=== PATIENT | male | born 1940 | race Caucasian/White ===

== ENCOUNTER → 2023-07-30 09:41 | Outpatient (REF) | payer MEDICARE, OTHER, SELFPAY ==
--- NOTE | 2023-07-30 09:47 | CA_ITS ---
Transthoracic Echocardiogram Patient (Last, First, Middle): Lyndon Varma R Gender: Male Date of : 1940 Age: 83 Procedure Date: 07/30/2023 Procedure Type: Transthoracic Echocardiogram Location: OP Height: 185.42 cm Weight: 79.38 kg BSA: 2.03 m2 Heart Rate: 67 bpm BP: 132 / 78 mmHg Fiber Picker: SB Referring MD: Dinorah MEDINA Symptoms: R06.09 RIZZO Study Quality: Adequate ECG Rhythm: Sinus with PACs Conclusions: - The left ventricular systolic function is normal. The calculated ejection fraction is 57% by biplane method. - The basal inferior segment is hypokinetic. - No obvious valvular pathology seen on this study. - Suspect liver cysts but not well seen. Consider dedicated ultrasound if clinically indicated. Findings Left Ventricle Normal left ventricular cavity size. The left ventricular systolic function is normal. The calculated ejection fraction is 57% by biplane method. Evidence suggests grade I (mild) diastolic dysfunction. There is mild septal asymmetric hypertrophy. Wall Motion Rest Echo Findings The basal inferior segment is hypokinetic. Right Ventricle Normal right ventricular cavity size and systolic function. Atria The left atrium is mildly dilated. The right atrium is normal in size. Aortic Valve There is a normal trileaflet aortic valve. There is no aortic valve stenosis. There is trace (trivial) aortic valve regurgitation. Mitral Valve The mitral valve appears normal. There is no mitral valve regurgitation. There is no mitral valve stenosis. Pulmonic Valve The pulmonic valve is likely normal. Tricuspid Valve Normal tricuspid valve structure. There is trace tricuspid valve regurgitation. There is no evidence of pulmonary hypertension. Great Vessels The asc aorta is normal in size. Venous The inferior vena cava is normal in size and collapses greater than 50% with inspiration. Pericardium/Pleural There is no evidence of pericardial effusion. Prior Study Comparison No prior study available for comparison. Recommendations, Care & Conclusions No obvious valvular pathology seen on this study. Measurements 2D Linear Measurements IVSd: 1.14 0.6-0.9/0.6-1.0 cm LVIDd: 4.68 3.9-5.3/4.2-5.9 cm LVIDd Index: 2.31 2.4-3.2/2.2-3.1 cm/m2 LVIDs: 3.48 2.0-3.6 cm LVPWd: 0.69 0.7-1.1 cm LA Diam: 3.70 2.7-3.8/3.0-4.0 cm LAIDs Index: 1.82 1.5-2.3 cm/m2 LV Mass: 180.86 67-162/88-224 g LV Mass Index: 89.09 43-95/49-115 g/m2 LVOT Diam: 2.20 3.0+(-)1.3 cm 2D Systolic Function EF 4C: 58.80 >55% EF 2C: 57.10 >55% EF BiP: 57.20 >55% Mitral Valve MV Pk E: 0.67 MV PK A: 1.15 MV Decel Time: 206.00 E/A: 0.60 E'Lateral: 4.79 E'Medial: 4.35 E/E' Med: 15.40 E/E' Lat: 13.90 PHT: 60.00 MVA PHT: 3.67 Decel Sully: 3.24 Aortic Valve AoV Pk Syed: 1.08 AoV Pk Grad: 5.00 AMAURI: 3.35 LVOT LVOT Pk Syed: 1.04 LVOT Mn Syed: 0.71 LVOT VTI: 0.21 LVOT Pk Grad: 4.00 LVOT Mn Grad: 2.00 LVOT Diam: 2.20 LVOT Area: 3.80 Diastolic Function MV Pk E: 0.67 MV Pk A: 1.15 E/A: 0.60 E'Medial: 4.35 E/E' Med: 15.40 E' Laterial: 4.79 E/E' Lat: 13.90 Right Ventricle TAPSE (mm): 18.70 TVS' Syed: 14.00 Tricuspid Valve TR Pk Syed: 2.11 TR Pk Grad: 18.00 RA Press: 3.00 RVSP: 21.00 Great Vessels Aorta Sinus of Valsalva: 3.80 2.0-3.5 cm Ao Asc: 3.60 2.1-3.4 cm Pulmonary Valve PV Pk Syed: 0.98 Peak PV Grad: 4.00 Updated in Other Vendor System with Status of Final Nik Wood MD electronically signed on 07/31/2023 12:41:05 PM with status of Final
== END ==
LOC: HO.CARD 09:41
PROVIDERS: PCP Physician Assistant; Visit Provider Physician Assistant
DX: R06.09 Other forms of dyspnea (principal)
CPT/HCPCS: 93306

== ENCOUNTER → 2023-07-30 09:47 | Outpatient (BNV) | payer MEDICARE, OTHER, SELFPAY | PROVIDERS: PCP Physician Assistant; Visit Provider Internal Medicine | DX: R06.09 Other forms of dyspnea (principal) | CPT/HCPCS: 93306 ==